=== PATIENT | female | born 1970 | race Caucasian/White ===

== ENCOUNTER 2018-06-16 17:30 | Emergency (ER) | payer OTHER ==
[~2018-06-16] VITALS: Ht 160 cm; Wt 90.7 kg
[~2018-06-16 17:30] MED LIST: ASPIRIN325; AZITHROMYCIN250 MG PO; CHERATUSSIN AC118 ML; DOXYCYCLINE 10100 MG PO; FORTAMET500 MG PO; LIPITOR10 MG PO; LISINOPRIL20 MG PO; MEDROLDOSEPACK PO; PREDNISONE50 MG PO; PULMICORT FLE180 MCG IH; TUSSIONEX PENN473 ML PO; ZANTAC 150MG T150 MG PO
[2018-06-16 17:59] LABS: BASOPHILS 1.6 % (0.0-2.0); EOSINOPHILS 1.3 % (0.0-3.0); HEMATOCRIT 42.6 % (37.0-47.0); HEMOGLOBIN 14.8 gm/dL (12.0-15.0); MCHC 34.8 g/dL (28.0-37.0); MCV 83.3 fL (80.0-100.0); MONOCYTES 4.5 % (1.0-8.0); PLATELET COUNT 231 thou/uL (150-400); POLYS 65.6 % (36.0-66.0); RBC 5.11 mil/uL (4.20-5.00); RDW 13.4 % (10.5-14.5); WBC 6.2 thou/uL (4.0-11.0)
[2018-06-16 18:00] LABS: URINE BILIRUBIN NEGATIVE (Negative); URINE BLOOD NEGATIVE (Negative); URINE CLARITY CLEAR; URINE COLOR YELLOW; URINE GLUCOSE-RANDOM* NEGATIVE (Negative); URINE KETONES NEGATIVE (Negative); URINE LEUKOCYTES-REFLEX NEGATIVE (Negative); URINE NITRITE-REFLEX NEGATIVE (Negative); URINE PROTEIN (DIPSTICK) NEGATIVE (Negative); URINE SPECIFIC GRAVITY >= 1.030 (1.005-1.035); URINE UROBILINOGEN 0.2 E.U./dl (0.2-1.0)
[2018-06-16 18:06] LABS: ANION GAP 9 mmol/L (7-16); BUN 12 mg/dL (7-18); CALCIUM 9.4 mg/dL (8.5-10.1); CHLORIDE 102 mmol/L (98-107); CO2 28 mmol/L (21-32); CREATININE 0.6 mg/dL (0.6-1.0); GLUCOSE 106 mg/dL (74-106); POTASSIUM 3.8 mmol/L (3.5-5.1); SODIUM 139 mmol/L (136-145)
[2018-06-16 18:15] LABS: ALBUMIN 4.3 g/dL (3.4-5.0); LIPASE 149 U/L (73-393); SGOT 23 U/L (15-37); SGPT 33 U/L (30-65); TOTAL BILIRUBIN 0.2 mg/dL (<0.1-1.0); TOTAL PROTEIN 8.4 g/dL (6.4-8.2); TROPONIN-I <0.06 ng/mL (<0.06)
[2018-06-16] MEDS ORDERED: NORCO 5-325 TA1 EACH PO (21:34)
[2018-06-16] MEDS ORDERED: ONDANSETRON HCL4 M2 PO (21:41)
[2018-06-16 22:06] VITALS: BP 120/76
== END 2018-06-16 22:07 | disposition home or self-care (01) ==
LOC: ER 17:30
PROVIDERS: Emergency Medicine
DX: N80.9 Endometriosis, unspecified (principal); R11.2 Nausea with vomiting, unspecified; I10 Essential (primary) hypertension; G43.909 Migraine, unspecified, not intractable, without status migrainosus; Z90.710 Acquired absence of both cervix and uterus; Z86.73 Personal history of transient ischemic attack (TIA), and cerebral infarction without residual deficits